=== PATIENT | female | born 1940 | race Caucasian/White ===

== ENCOUNTER 2019-05-27 13:05 | Outpatient (CLI) | payer MEDICARE | END 2019-05-27 13:06 | disposition home or self-care (01) | LOC: CP 13:05 | PROVIDERS: ATTEND Internal Medicine Cardiovascular Disease | DX: R06.02 Shortness of breath (principal) | CPT/HCPCS: 94060; 94727; 94729 ==

== ENCOUNTER 2023-12-25 14:20 | Day surgery (SDC) | payer MEDICARE, OTHER ==
[2023-12-25 16:51] LABS: Fluid, pH - Pleural Fld Greater than 7.500 (7.60 - 7.66)
[2023-12-25 16:57] LABS: RBC Count-Automated (BF) 88 /cu.mm; WBC/Nucleated-Auto (BF) 375 /cu.mm
[2023-12-25 17:00] LABS: BF Color Yellow; Body Fluid Source Thoracentesis Fluid; Clarity Hazy (Clear); Tube # EDTA
[2023-12-25 17:19] LABS: BF Segmented Neutrophils 4 %; Cell Count Non Hematic 58 %; Lymphocytes 38 %
[2023-12-25 17:26] LABS: Pleural Fluid, Protein 3.1 g/dL
== END 2023-12-25 16:30 | disposition home or self-care (01) ==
LOC: SDC 14:20
PROVIDERS: ATTEND Internal Medicine
PROC: 0W9B4ZZ Drainage of Left Pleural Cavity, Percutaneous Endoscopic Approach (ICD-10-PCS; principal; 2023-12-25)
DX: J90 Pleural effusion, not elsewhere classified (principal); R84.6 Abnormal cytological findings in specimens from respiratory organs and thorax
CPT/HCPCS: 32554; 71045; 82150; 82945; 83615; 84157; 85060; 87070; 87102; 87116; 87205; 87206; 88112; 88305; 89051

== ENCOUNTER → 2024-04-22 | Day surgery (SDC) | payer MEDICARE, OTHER ==
[~2024-04-22] MED LIST: Sodium Bicarbonate 2.5 MEQ/5 ML SDV ONE
[2024-04-22 08:31] LABS: #Basophils 0.06 10x3/uL (0.0-0.2); %Basophils 0.9 % (0.0-1.0); %Eosinophils 1.9 % (0.0-10.0); %Lymphocytes 7.6 % (21.0-51.0); %Monocytes 11.3 % (0.0-10.0); %Neutrophils 77.9 % (42.0-75.0); Hematocrit 34.8 % (36.0-47.0); Hemoglobin 10.6 g/dL (12.0-16.0); Mean Corpuscular HGB CONC 30.5 g/dL (32.0-36.0); Mean Corpuscular Hemoglobin 32.4 pg (27.0-31.0); Mean Corpuscular Volume 106.4 fL (78.0-98.0); Mean Platelet Volume 10.4 fL (7.4-10.4); Platelet Count 307 10x3/uL (130-400); RBC Distribution Width 14.8 % (11.5-14.5); Red Blood Cell (RBC) Count 3.27 mill/uL (4.20-5.40)
[2024-04-22 08:43] LABS: PTT 32.6 sec (22.9-36.1)
[2024-04-22 08:44] LABS: Prothrombin Time 13.4 sec (12.0-14.7)
== END ==
LOC: ULT 08:15
PROVIDERS: ATTEND Internal Medicine Cardiovascular Disease
PROC: 0W9B3ZZ Drainage of Left Pleural Cavity, Percutaneous Approach (ICD-10-PCS; principal; 2024-04-22)
DX: J90 Pleural effusion, not elsewhere classified (principal); R06.09 Other forms of dyspnea
CPT/HCPCS: 32555; 71045; 85025; 85610; 85730

== ENCOUNTER 2024-07-27 11:42 | Outpatient (CLI) | payer MEDICARE, OTHER | END 2024-07-27 11:43 | disposition home or self-care (01) | LOC: RAD 11:42 | PROVIDERS: ATTEND Internal Medicine | DX: J90 Pleural effusion, not elsewhere classified (principal); R06.00 Dyspnea, unspecified; J98.11 Atelectasis; M85.80 Other specified disorders of bone density and structure, unspecified site | CPT/HCPCS: 71046 ==

== ENCOUNTER 2025-03-01 11:46 | Outpatient (CLI) | payer MEDICARE, OTHER | END 2025-03-01 11:47 | disposition home or self-care (01) | LOC: CT 11:46 | PROVIDERS: ATTEND Internal Medicine Gastroenterology | DX: I50.9 Heart failure, unspecified (principal); K21.9 Gastro-esophageal reflux disease without esophagitis; R10.13 Epigastric pain; R63.4 Abnormal weight loss; J98.4 Other disorders of lung; J90 Pleural effusion, not elsewhere classified; J98.11 Atelectasis | CPT/HCPCS: 74176 ==

== ENCOUNTER 2025-04-01 14:06 | Inpatient (IN) | payer MEDICARE, OTHER ==
[2025-04-01 15:32] LABS: #Basophils 0.05 10x3/uL (0.0-0.2); #Eosinophils 0.33 10x3/uL (0.0-0.7); #Monocytes 0.74 10x3/uL (0.11-0.59); #Neutrophils 5.95 10x3/uL (1.40-6.50); %Basophils 0.6 % (0.0-1.0); %Eosinophils 4.3 % (0.0-10.0); %Lymphocytes 7.1 % (21.0-51.0); %Monocytes 9.6 % (0.0-10.0); %Neutrophils 77.0 % (42.0-75.0); Hematocrit 32.7 % (36.0-47.0); Hemoglobin 10.1 g/dL (12.0-16.0); Mean Corpuscular Hemoglobin 30.9 pg (27.0-31.0); Mean Corpuscular Volume 100.0 fL (78.0-98.0); Platelet Count 239 10x3/uL (130-400); Red Blood Cell (RBC) Count 3.27 mill/uL (4.20-5.40); White Blood Cell (WBC) Count 7.73 10x3/uL (4.8-10.8)
[2025-04-01 15:48] LABS: ALT (SGPT) 8 U/L (Less than 34); AST (SGOT) 22 U/L (11-34); Albumin 2.9 g/dL (3.1-4.5); Alkaline Phosphatase 104 U/L (40-110); Anion Gap 16 mmol/L (10-20); BUN (Urea Nitrogen) 36 mg/dL (9.8-20.1); Bilirubin, Total 0.3 mg/dL (0.3-1.2); Calc. Creatinine Clearance 0 mL/min (70-130); Calcium 8.8 mg/dL (7.8-10.44); Carbon Dioxide 25 mmol/L (23-31); Chloride 101 mmol/L (98-107); Globulin 3.5 g/dL (2.4-3.5); Glucose 102 mg/dL (83-110); Potassium 4.5 mmol/L (3.5-5.1); Sodium 137 mmol/L (136-145)
[2025-04-01] MEDS ORDERED: Senokot S 8.6-50 MG TAB PO PRN (19:00)
[2025-04-01] MEDS ORDERED: Calcium Carbonate 500 MG ChewTAB PO PRN (19:00)
[2025-04-01] MEDS ORDERED: Nitroglycerin 0.4 MG TAB (25 Tab Bottle) SL PRN (19:58)
[2025-04-01] MEDS ORDERED: Aspirin Chewable 81 MG TAB ONE (20:57)
[2025-04-01] MEDS: Aspirin 81 mg Enteric Coated Tablet PO SCH (20:59)
[2025-04-01] MEDS: Heparin 5,000 UNITS/ML VIAL SC SCH (21:02)
[2025-04-02] MEDS: Albumin 25% 25 GM (100 mL) BOT IVPB SCH ×3 (00:10→20:17)
[2025-04-02 01:21] VITALS: BMI 25.3
[2025-04-02 03:32] LABS: Glucose, Urine (Dipstick) Normal (Negative); Leukocyte 500 Leu/uL (Negative); Protein, Urine (Dipstick) Negative (Neg-Trace); RBC/HPF 0-3 HPF (0-3); Specific Gravity, Urine 1.017 (1.002-1.036); WBC/HPF 21-50 HPF (0-3); Yeast-Budding 1+ HPF (None Seen)
[2025-04-02 03:33] LABS: Bacteria/HPF 1+ HPF (None Seen)
[2025-04-02 04:07] LABS: #Basophils 0.03 10x3/uL (0.0-0.2); #Eosinophils 0.26 10x3/uL (0.0-0.7); #Monocytes 0.43 10x3/uL (0.11-0.59); #Neutrophils 3.85 10x3/uL (1.40-6.50); %Basophils 0.6 % (0.0-1.0); %Eosinophils 5.0 % (0.0-10.0); %Lymphocytes 12.0 % (21.0-51.0); %Monocytes 8.2 % (0.0-10.0); %Neutrophils 73.6 % (42.0-75.0); Hematocrit 26.2 % (36.0-47.0); Hemoglobin 7.9 g/dL (12.0-16.0); Mean Corpuscular Hemoglobin 30.3 pg (27.0-31.0); Mean Corpuscular Volume 100.4 fL (78.0-98.0); Platelet Count 196 10x3/uL (130-400); Red Blood Cell (RBC) Count 2.61 mill/uL (4.20-5.40); White Blood Cell (WBC) Count 5.23 10x3/uL (4.8-10.8)
[2025-04-02 04:29] LABS: Albumin 3.3 g/dL (3.1-4.5); Anion Gap 16 mmol/L (10-20); BUN (Urea Nitrogen) 32 mg/dL (9.8-20.1); BUN/Creatinine Ratio 15.38; Calc. Creatinine Clearance 22 mL/min (70-130); Calcium 9.1 mg/dL (7.8-10.44); Carbon Dioxide 21 mmol/L (23-31); Chloride 104 mmol/L (98-107); Glucose 87 mg/dL (83-110); Magnesium 2.2 mg/dL (1.6-2.6); Potassium 4.1 mmol/L (3.5-5.1); Sodium 137 mmol/L (136-145)
[2025-04-02] MEDS: Folic Acid 1 MG TAB PO SCH (08:59)
[2025-04-02] MEDS: Ferrous Sulfate 325 MG TAB PO SCH (08:59)
[2025-04-02] MEDS: Metoprolol Succinate XL 50 MG ER.TAB PO SCH (09:00)
[2025-04-02] MEDS: EPOETIN ALFA-EPBX (ESRD) 10,000 UNITS/ML VIAL SC SCH (09:06)
[2025-04-02] MEDS: Cipro 250 MG TAB PO SCH (20:16)
[2025-04-03 04:35] LABS: #Basophils 0.03 10x3/uL (0.0-0.2); #Eosinophils 0.26 10x3/uL (0.0-0.7); #Monocytes 0.54 10x3/uL (0.11-0.59); #Neutrophils 5.11 10x3/uL (1.40-6.50); %Basophils 0.5 % (0.0-1.0); %Eosinophils 4.0 % (0.0-10.0); %Lymphocytes 7.1 % (21.0-51.0); %Monocytes 8.4 % (0.0-10.0); %Neutrophils 79.1 % (42.0-75.0); Hematocrit 25.7 % (36.0-47.0); Hemoglobin 7.9 g/dL (12.0-16.0); Mean Corpuscular Hemoglobin 31.0 pg (27.0-31.0); Mean Corpuscular Volume 100.8 fL (78.0-98.0); Platelet Count 168 10x3/uL (130-400); Red Blood Cell (RBC) Count 2.55 mill/uL (4.20-5.40); White Blood Cell (WBC) Count 6.46 10x3/uL (4.8-10.8)
[2025-04-03 05:01] LABS: Anion Gap 15 mmol/L (10-20); BUN (Urea Nitrogen) 26 mg/dL (9.8-20.1); Calc. Creatinine Clearance 29 mL/min (70-130); Calcium 9.8 mg/dL (7.8-10.44); Carbon Dioxide 25 mmol/L (23-31); Chloride 104 mmol/L (98-107); Glucose 103 mg/dL (83-110); Potassium 3.9 mmol/L (3.5-5.1); Sodium 140 mmol/L (136-145)
[2025-04-03 05:02] LABS: CRP, High Sensitivity at Bryan 0.94 mg/dL (< or = 0.5)
[2025-04-03] MEDS: Pantoprazole 40 MG DR.TAB PO SCH (08:47)
[2025-04-03] MEDS: Acetaminophen 325 MG TAB PO PRN (09:05)
[2025-04-04 04:19] LABS: Hematocrit 27.9 % (36.0-47.0); Hemoglobin 8.4 g/dL (12.0-16.0)
[2025-04-04 04:33] LABS: Anion Gap 14 mmol/L (10-20); BUN (Urea Nitrogen) 19 mg/dL (9.8-20.1); Calc. Creatinine Clearance 37 mL/min (70-130); Calcium 10.0 mg/dL (7.8-10.44); Carbon Dioxide 25 mmol/L (23-31); Chloride 106 mmol/L (98-107); Glucose 109 mg/dL (83-110); Potassium 3.9 mmol/L (3.5-5.1); Sodium 141 mmol/L (136-145)
[2025-04-04 04:46] LABS: Iron 28 ug/dL (50-170); Iron Binding Capacity, Total 171 mcg/dL (265-497)
[2025-04-04] MEDS: Ondansetron PF 4 MG/2 ML Vial IVP PRN (11:21)
[2025-04-04] MEDS: Sodium Ferric Gluconate 250 MG in Sodium Chloride 0.9% 250 ML 250 ML IVPB SCH (11:46)
[2025-04-04] MEDS ORDERED: hydrALAZINE 20 MG/ML VIAL SLOW IVP PRN (13:38)
[2025-04-04 13:39] LABS: Influenza A by NAA Not Detected (NotDetected); Influenza B by NAA Not Detected (NotDetected); SARS-CoV-2 NAA Rapid Test Not Detected (NotDetected)
[2025-04-04] MEDS: PNEUMOC 20-VAL CONJ-DIP CRM/PF 0.5 ML SYRINGE IM ONE (14:37)
[2025-04-05 04:32] LABS: #Basophils 0.04 10x3/uL (0.0-0.2); #Eosinophils 0.35 10x3/uL (0.0-0.7); #Monocytes 0.63 10x3/uL (0.11-0.59); #Neutrophils 5.22 10x3/uL (1.40-6.50); %Basophils 0.6 % (0.0-1.0); %Eosinophils 5.1 % (0.0-10.0); %Lymphocytes 7.9 % (21.0-51.0); %Monocytes 9.2 % (0.0-10.0); %Neutrophils 75.9 % (42.0-75.0); Hematocrit 28.7 % (36.0-47.0); Hemoglobin 8.4 g/dL (12.0-16.0); Mean Corpuscular Hemoglobin 30.2 pg (27.0-31.0); Mean Corpuscular Volume 103.2 fL (78.0-98.0); Platelet Count 171 10x3/uL (130-400); Red Blood Cell (RBC) Count 2.78 mill/uL (4.20-5.40); White Blood Cell (WBC) Count 6.87 10x3/uL (4.8-10.8)
[2025-04-05 04:55] LABS: Anion Gap 12 mmol/L (10-20); BUN (Urea Nitrogen) 15 mg/dL (9.8-20.1); Calc. Creatinine Clearance 37 mL/min (70-130); Calcium 9.7 mg/dL (7.8-10.44); Carbon Dioxide 26 mmol/L (23-31); Chloride 107 mmol/L (98-107); Glucose 91 mg/dL (83-110); Potassium 3.5 mmol/L (3.5-5.1); Sodium 141 mmol/L (136-145)
[2025-04-05 04:56] LABS: CRP, High Sensitivity at Bryan 7.13 mg/dL (< or = 0.5)
[2025-04-06 03:08] LABS: #Basophils 0.03 10x3/uL (0.0-0.2); #Eosinophils 0.40 10x3/uL (0.0-0.7); #Monocytes 0.51 10x3/uL (0.11-0.59); #Neutrophils 4.34 10x3/uL (1.40-6.50); %Basophils 0.5 % (0.0-1.0); %Eosinophils 6.7 % (0.0-10.0); %Lymphocytes 10.8 % (21.0-51.0); %Monocytes 8.5 % (0.0-10.0); %Neutrophils 72.2 % (42.0-75.0); Hematocrit 27.4 % (36.0-47.0); Hemoglobin 8.1 g/dL (12.0-16.0); Mean Corpuscular Hemoglobin 30.8 pg (27.0-31.0); Mean Corpuscular Volume 104.2 fL (78.0-98.0); Platelet Count 181 10x3/uL (130-400); Red Blood Cell (RBC) Count 2.63 mill/uL (4.20-5.40); White Blood Cell (WBC) Count 6.01 10x3/uL (4.8-10.8)
[2025-04-06 03:49] LABS: Anion Gap 15 mmol/L (10-20); BUN (Urea Nitrogen) 12 mg/dL (9.8-20.1); Calc. Creatinine Clearance 36 mL/min (70-130); Calcium 9.3 mg/dL (7.8-10.44); Carbon Dioxide 24 mmol/L (23-31); Chloride 106 mmol/L (98-107); Glucose 83 mg/dL (83-110); Potassium 3.5 mmol/L (3.5-5.1); Sodium 141 mmol/L (136-145)
[2025-04-06 12:07] VITALS: TEMP 98.6
[2025-04-06 17:13] VITALS: BP 125/66
[2025-04-06] MEDS ORDERED: Losartan 25 MG TAB PO SCH (21:00)
== END 2025-04-06 18:55 | disposition home or self-care (01) | DRG 683 ==
LOC: ERS 14:06 → ERHOLD 17:45 → PCU 21:47 → OBSVTOIN 04-02 14:32
PROVIDERS: ADMIT Internal Medicine; ATTEND Internal Medicine
PROC: 30233J1 Transfusion of Nonautologous Serum Albumin into Peripheral Vein, Percutaneous Approach (ICD-10-PCS; principal; 2025-04-02)
DX: N17.9 Acute kidney failure, unspecified (principal); I13.0 Hypertensive heart and chronic kidney disease with heart failure and stage 1 through stage 4 chronic kidney disease, or unspecified chronic kidney disease; I50.32 Chronic diastolic (congestive) heart failure; N39.0 Urinary tract infection, site not specified; I48.0 Paroxysmal atrial fibrillation; I25.10 Atherosclerotic heart disease of native coronary artery without angina pectoris; E78.5 Hyperlipidemia, unspecified; D63.1 Anemia in chronic kidney disease; N18.30 Chronic kidney disease, stage 3 unspecified; Z79.82 Long term (current) use of aspirin; Z88.8 Allergy status to other drugs, medicaments and biological substances; Z79.899 Other long term (current) drug therapy
CPT/HCPCS: 36415; 71045; 80048; 80053; 80069; 81001; 82607; 82728; 83540; 83550; 83735; 83880; 84145; 84443; 84484; 85014; 85018; 85025; 86141; 87040; 87086; 87636; 93005; 94760; 96365; 96366; 96372; 96376; G0378; J1644; J2543; J2916; J7030; J7050; P9047; Q5105